=== PATIENT | female | born 1995 | race Caucasian/White ===

== ENCOUNTER → 2019-02-16 17:38 | Outpatient (CLI) | payer BC, MEDICAID, SELFPAY ==
[2019-02-16 13:15] VITALS: BMI 24.5
[2019-02-16 20:09] LABS: Chlamydia Trachomatis by PCR Negative (Negative); Neisserai gonorrhoeae by PCR Negative (Negative)
[2019-02-16 20:10] LABS: Probe Check PASS; Sample Adequacy Control PASS; Specimen Processing Control PASS
[2019-02-19 18:14] LABS: HPV Reflexed? NOT INDICATED
== END ==
PROVIDERS: Visit Provider Obstetrics & Gynecology
DX: Z34.80 Encounter for supervision of other normal pregnancy, unspecified trimester (principal); Z12.4 Encounter for screening for malignant neoplasm of cervix
CPT/HCPCS: 87086; 87491; 87591; 88175; G0145

== ENCOUNTER → 2019-03-16 11:33 | Outpatient (CLI) | payer BC, MEDICAID, SELFPAY ==
[2019-03-16 11:18] VITALS: BMI 24.8
[2019-03-16 12:24] LABS: Absolute Lymphocyte Count 1.56 X10^3/uL (0.83-4.51); Absolute Neutrophil Count 5.1 X10^3/uL (2.0-7.7); Basophil# 0.02 X10^3/uL; Basophil% 0.3 % (0-1); Eosinophil# 0.07 X10^3/uL; Hematocrit 40.6 % (37-47); Hemoglobin 13.4 g/dL (12.0-15.0); Lymphocyte # 1.56 X10^3/ul (4.0); Monocyte# 0.35 X10^3/uL; Monocyte% 4.9 % (0-10); NRBC Flagged by Analyzer 0 % (0-5); Neutrophil # 5.05 X10^3/uL (2.7-7.7); Neutrophil % 71.2 % (47-70); Platelet Count 204 K/mm3 (150-450); RBC Distribution Width CV 12.9 % (11.6-14.6); RBC Distribution Width SD 42.5 fl (35.1-43.9); Red Blood Count 4.46 M/mm3 (4.2-5.4); White Blood Count 7.1 K/mm3 (4.4-11.0)
[2019-03-16 12:42] LABS: AST(SGOT) 20 U/L (15-37); Alanine Aminotransfer ALT/SGPT 26 U/L (13-56); Albumin, Serum 3.5 g/dL (3.2-5.0); Alkaline Phosphatase 58 U/L (45-117); Anion Gap 6 (5-15); BUN 6 mg/dL (7-18); BUN/Creat Ratio 8.9 RATIO (10-20); Calcium,Total 9.1 mg/dL (8.5-10.1); Chloride 108 mmol/L (98-107); Creatinine, Serum 0.67 mg/dL (0.55-1.02); EST Glomerular Filtration Rate 114 mL/min (>60); Est Glom Filt Rate - Afr Amer 138 mL/min (>60); Globulin 3.6 g/dL (2.2-4.2); Glucose 93 mg/dL (74-106); Potassium 3.7 mmol/L (3.5-5.1); Protein, Total 7.1 g/dL (6.4-8.2); Sodium Level 138 mmol/L (136-145)
[2019-03-16 14:55] LABS: HIV - WCH Preliminary Reactive (Nonreactive); Hepatitis B Surface Antigen Non-Reactive (Nonreactive); Rubella IgG 163.8 IU/mL
[2019-03-19 03:50] LABS: Rapid Plasmin Reagin (RPR) NONREACTIVE (NONREACTIVE)
== END ==
PROVIDERS: Referring Provider Obstetrics & Gynecology; Visit Provider Obstetrics & Gynecology
DX: Z34.80 Encounter for supervision of other normal pregnancy, unspecified trimester (principal); Z87.59 Personal history of other complications of pregnancy, childbirth and the puerperium; Z87.19 Personal history of other diseases of the digestive system
CPT/HCPCS: 80053; 85025; 86592; 86703; 86762; 86850; 86900; 86901; 87340

== ENCOUNTER → 2019-03-23 11:21 | Outpatient (CLI) | payer BC, MEDICAID, SELFPAY ==
[2019-03-16 11:43] VITALS: BMI 24.5
== END ==
PROVIDERS: Referring Provider Obstetrics & Gynecology; Visit Provider Obstetrics & Gynecology
DX: Z78.9 Other specified health status (principal)
CPT/HCPCS: 36415

== ENCOUNTER → 2019-08-31 08:02 | Outpatient (CLI) | payer BC, MEDICAID, SELFPAY ==
[2019-08-25 16:15] VITALS: BMI 24.5
[2019-08-31 09:06] LABS: ALB/GLOB Ratio 0.8 RATIO (0.9-2.4); AST(SGOT) 31 U/L (15-37); Alanine Aminotransfer ALT/SGPT 34 U/L (13-56); Albumin, Serum 2.8 g/dL (3.2-5.0); Alkaline Phosphatase 139 U/L (45-117); Anion Gap 7 (5-15); BUN 5 mg/dL (7-18); Calcium,Total 8.5 mg/dL (8.5-10.1); Chloride 108 mmol/L (98-107); EST Glomerular Filtration Rate 160 mL/min (>60); Est Glom Filt Rate - Afr Amer 193 mL/min (>60); Globulin 3.7 g/dL (2.2-4.2); Glucose 85 mg/dL (74-106); Potassium 3.7 mmol/L (3.5-5.1); Protein, Total 6.5 g/dL (6.4-8.2); Sodium Level 137 mmol/L (136-145)
[2019-08-31 10:35] LABS: HIV - WCH Preliminary Reactive (Nonreactive)
== END ==
PROVIDERS: Referring Provider Obstetrics & Gynecology; Visit Provider Obstetrics & Gynecology
DX: L50.9 Urticaria, unspecified (principal); Z78.9 Other specified health status
CPT/HCPCS: 36415; 80053; 86703

== ENCOUNTER → 2019-09-08 17:15 | Outpatient (CLI) | payer BC, MEDICAID, SELFPAY ==
[2019-09-08 14:14] VITALS: BMI 24.5
== END ==
PROVIDERS: Referring Provider Obstetrics & Gynecology; Visit Provider Obstetrics & Gynecology
DX: Z34.90 Encounter for supervision of normal pregnancy, unspecified, unspecified trimester (principal)
CPT/HCPCS: 87081

== ENCOUNTER → 2019-09-14 18:53 | Outpatient (CLI) | payer BC, MEDICAID, SELFPAY ==
[2019-09-14 13:14] VITALS: BMI 24.5
--- NOTE | 2019-09-14 18:56 | US_ITS ---
STUDY: SECOND AND THIRD TRIMESTER OBSTETRICAL ULTRASOUND REASON FOR EXAM: Female, 24 years old. Growth. Small for gestational age. LMP: 12/25/2018. TECHNIQUE: Transabdominal TECHNICAL QUALITY: Adequate. PRIOR ULTRASOUND: None. FINDINGS: There is a single intrauterine fetus. The fetus is in a cephalic presentation. There is demonstrated cardiac activity with a heart rate ranging between 128 and 149 bpm. There is a normal amniotic fluid volume. The largest amniotic fluid pocket measures 4.41 cm. The amniotic fluid index (INDIRA) is 13.42 cm. The placenta is posterior in location and is not low lying. There are Grade 2 placental changes. The cervix is not visualized. BIOMETRY: BPD: 8.87 cm: 36 weeks, 0 days HC: 33.19 cm: 37 weeks, 6 days AC: 33.94 cm: 37 weeks, 6 days FL: 7.09 cm: 36 weeks, 3 days CI: 83 FL/BPD: 80 FL/HC: FL/AC: 21 HC/AC: 0.98 age by current US: 37 weeks, 1 days. SABRINA by current US: 10/04/2019. Estimated weight: 3159 grams, +/- 461 grams, 51 %. Age by LMP: 37 weeks, 4 days. SABRINA by LMP: 10/01/2019. US/OB Limited With Biometrics IMPRESSION: 1. Live single intrauterine at 37 weeks, 1 day. SABRINA is 10/04/2019. This correlates well with expected gestational age by last menstrual period. 2. EFW 3159 g. 3. INDIRA of 13.42 cm. 4. Posterior grade 2 placenta. 5. Vertex presentation. Electronically Signed: Naren Smith DO at 21:56 EDT Tel [phone], Service support ,
== END ==
PROVIDERS: Visit Provider Obstetrics & Gynecology
DX: Z34.93 Encounter for supervision of normal pregnancy, unspecified, third trimester (principal)
CPT/HCPCS: 76816

== ENCOUNTER → 2019-09-25 18:04 | Outpatient (CLI) | payer BC, MEDICAID, SELFPAY ==
[2019-09-23 14:54] VITALS: BMI 24.5
== END ==
PROVIDERS: Referring Provider Obstetrics & Gynecology; Visit Provider Obstetrics & Gynecology
DX: Z11.59 Encounter for screening for other viral diseases (principal)
CPT/HCPCS: 87635; 94799; U0003

== ENCOUNTER 2019-09-30 10:49 | Inpatient (IN) | payer BC, MEDICAID, SELFPAY ==
[2019-09-14 13:14] VITALS: BMI 24.5
[2019-09-23 14:54] VITALS: BMI 24.5
[2019-09-30] VITALS (38 sets, daily range): BP systolic 84–125; BP diastolic 46–86; PULSE 85–131; RESP 16; TEMP 36.7–37.2; O2SAT 89–100; BMI 27.4
[2019-09-30] MEDS: Lactated Ringers 500 ML 999 ML IV (10:55)
[2019-09-30 11:25] LABS: Absolute Lymphocyte Count 2.59 X10^3/uL (0.83-4.51); Absolute Neutrophil Count 6.6 X10^3/uL (2.0-7.7); Basophil# 0.04 X10^3/uL; Basophil% 0.4 % (0-1); Eosinophil# 0.06 X10^3/uL; Eosinophils% 0.6 % (0-5); Hematocrit 40.4 % (37-47); Hemoglobin 13.6 g/dL (12.0-15.0); Lymphocyte # 2.59 X10^3/ul (4.0); Lymphocyte % 26.1 % (19-41); Mean Corp Hgb Conc 33.7 g/dL (32-36); Mean Corpuscular Hgb 31.3 pg (27.0-32.0); Mean Corpuscular Volume 93.1 fL (81-99); Monocyte# 0.52 X10^3/uL; Monocyte% 5.2 % (0-10); NRBC Flagged by Analyzer 0 % (0-5); Neutrophil # 6.64 X10^3/uL (2.7-7.7); Neutrophil % 67.1 % (47-70); Platelet Count 177 K/mm3 (150-450); RBC Distribution Width CV 13.2 % (11.6-14.6); RBC Distribution Width SD 45.1 fl (35.1-43.9); Red Blood Count 4.34 M/mm3 (4.2-5.4); White Blood Count 9.9 K/mm3 (4.4-11.0)
[2019-09-30] MEDS: Lactated Ringers 1,000 ML 200 ML IV (11:25)
[2019-09-30] MEDS: fentaNYL-bupivacaine (epidural) 100 ML BAG EPIDURAL (11:54)
[2019-09-30] MEDS: Oxytocin 30 units/NS 500 ml 30 UNITS/500 ML IV.SOLN 334 UNITS IV (13:41)
[2019-09-30] MEDS: Senna/Docusate Sodium 1 Tablet PO (16:09)
--- NOTE | 2019-09-30 21:22 | HP.PCM_ITS ---
- Problem List (1) Active labor at term Status: Acute (2) False positive HIV serology Status: Acute Comment: HIV RNA 1/2- negative. APL testing negative. repeat testing third TM confirmation neg. (3) Rh negative status during Status: Acute Comment: rhogam 03/16/19, 07/09/19 and 28 weeks (4) History of cholestasis during Status: Acute Comment: early onset first , no liver disease (5) Supervision of other normal Status: Acute Comment: PRR SABRINA 09/24/19 boy lance JOANN Melendez Jennifer - Len (6) Status: Acute Qualifiers: Comment: NIPT, carrier, and ntd screening declined. APL negative, anatomy normal. no GCT, Checked BS x1 week normal TDAP given 07/09/19 History Date of Admission: 09/30/19 Final SABRINA: 10/01/19 Gestational age: 39 Weeks and 6 Days History of this : This is a 24 year-old, at 39 weeks gestational age presents in active labor 5 cm with spontaneous rupture membranes at 1 AM today for clear fluid. She has had an uncomplicated but had a false positive HIV test that c onfirmation test was negative and APL testing was negative.. Medical History: Medical History (Last Reviewed 09/23/19 @ 14:54 by Almaz Salomon) Anxiety F41.9 Surgical History: Surgical History (Last Reviewed 09/23/19 @ 14:54 by Almaz Salomon) No significant past surgical history Allergies No Known Allergies Allergy (Verified 09/23/19 14:54) Home Medications: Home Medications vitamin#30 30 mg iron-10 mg iron-folic acid 1 mg-omg3 capsule cap PO 03/16/19 blood-glucose meter See Rx Instructions .ROUTE .MEDSUPPLY #1 ea 05/18/19 lancets-blood glucose strips 30 gauge and blood glucose strips combo pack See Rx Instructions .ROUTE .MEDSUPPLY #200 ea 05/18/19 Smoking Status: Never smoker Alcohol: None Number of Fetus(es): 1 NST - FHR Rate Baby A Baseline: 130 Variability:: Moderate Accelerations:: 15 x 15 Decelerations:: None NST Reactive:: Appropriate for gestational age FHR Category:: Category I History Past Pregnancies: Past Pregnancies 2 previous term vaginal deliveries. Cholestasis with first . Precipitous delivery with second. Labs: Mom's Labs & Results 09/30/19 09/30/19 10:55 10:55 WBC 9.9 RBC 4.34 Hgb 13.6 Hct 40.4 MCV 93.1 MCH 31.3 MCHC 33.7 RDW Std Deviation 45.1 H RDW Coeff of Yunior 13.2 Plt Count 177 MPV 12.0 Immature Gran % (Auto) 0.600 Neut % (Auto) 67.1 Lymph % (Auto) 26.1 [place] % (Auto) 5.2 Eos % (Auto) 0.6 Baso % (Auto) 0.4 Absolute Neuts (auto) 6.6 Absolute Lymphs (auto) 2.59 Nucleated RBC % 0 Blood Type O NEGATIVE Antibody Screen NEGATIVE Course Did the patient receive Yes care? Labs Blood Type: O RH: NEGATIVE RPR/VDRL/Syphilis Nonreactive Rubella status Immune HbSAg Negative Date Done: 03/16/19 Chlamydia Negative Gonorrhea Negative HIV/AIDS Non-Reactive Group B Strep: Negative Other Lab Procedures/Results/ HIV was a false positive per pt, was orginially Comments: positive, pt states they did a further test and it was negative Current Obstetrical History Gestational Diabetes No Incompetent Cervix No Infertility No IUGR No Macrosomia No Hypertension/Pre-eclampsia No Placenta Previa/Abruption No PTL/PROM No Uterine anomaly No Oligohydramnios No Polyhydramnios No Multiple gestation No Past Medical History Asthma No Diabetes No Hypertension No Heart disease No Mitral valve prolapse No Neurologic/Seizure disorder/ No Migraines Kidney disease No Liver disease No Varicosities No Clotting disorders/Hx of DVT No Thyroid Dysfunction No Other medical diseases No Psychiatric disorders No Major trauma No Abnormal PAP smear No Sleep apnea No Mammogram in the last 2 years No Social History Marital Status: Alleged father Len Hx Smoking No Smoking Status Never smoker Expected Delivery Method: Spontaneous Vaginal Review of Systems Constitutional: Denies: Fever, Malaise Eyes: Denies: Blurred vision, Vision Change HEENT: Denies: Head Aches, Visual Changes Cardiovascular: Denies: Chest Pain, Palpitations Respiratory: Denies: Cough, Shortness of Breath, Wheezing Gastrointestinal: Denies: Abdominal Pain, Diarrhea, Nausea, Vomiting Genitourinary: Denies: Dysuria, Hematuria Gynecological: Reports: Vaginal discharge Musculoskeletal: Denies: Joint Pain, Muscle pain Skin: Denies: Lesions, Rash Neurological: Denies: Blurred vision, Focal weakness, Headaches Psychiatric: Denies: Anxiety, Depression Endocrine: Denies: Heat/ Cold Intolerance Hematologic/ Lymphatic: Denies: Easy Bruising, Easy Bleeding Physical Exam Vitals: Vital Signs Temp Pulse Resp BP Pulse Ox 98.7 F 107 H 16 110/74 97 09/30/19 20:01 09/30/19 20:01 09/30/19 20:01 09/30/19 20:01 09/30/19 17:25 General: Alert, Cooperative, No apparent distress HEENT: Atraumatic, Normocephalic. Negative for: Thyromegaly, Lymphadenopathy Cardiovascular: Regular rate Lungs: Normal air movement Abdomen: Soft, Non Tender, Gravid Neurological: Deep Tendon Reflexes 2+/4 and Symmetrical, Neuro grossly intact. Negative for: Clonus LENS GRINDER AND POLISHER: Normal external genitalia. Negative for: Vulvar lesions Estimated gestational size: Appropriate for gestational size Presentation: Cephalic Cervix Dilation (cm): 5 Assessment/Plan All Active Problems (Last Reviewed 09/23/19 @ 14:54 by Almaz Salomon) Active labor at term (Acute) False positive HIV serology (Acute) Rh negative status during (Acute) History of cholestasis during (Acute) Supervision of other normal (Acute) (Acute) Uterine size-date discrepancy, third trimester (Resolved) This is a 24 year-old, , at 39 weeks gestational age. Patient presents IAL, plan expectant management for , pitocin/AROM PRN if needed. Pain management: Prefers minimal intervention. GBS negative. Management of any complications: None [facility] the [facility] and made any clinically relevant updates.
--- NOTE | 2019-09-30 21:24 | PCM.OPRPT ---
Problem List (1) Active labor at term Status: Acute (2) False positive HIV serology Status: Acute Comment: HIV RNA 1/2- negative. APL testing negative. repeat testing third TM confirmation neg. (3) Rh negative status during Status: Acute Comment: rhogam 03/16/19, 07/09/19 and 28 weeks (4) History of cholestasis during Status: Acute Comment: early onset first , no liver disease (5) Supervision of other normal Status: Acute Comment: PRR SABRINA 09/24/19 boy lance JOANN Chenon Jennifermatthew Harrington (6) Status: Acute Qualifiers: Comment: NIPT, carrier, and ntd screening declined. APL negative, anatomy normal. no GCT, Checked BS x1 week normal TDAP given 07/09/19 Vaginal Delivery Maternal Presentation: Active Labor 4-year-old G3, P2 at 39 weeks 6 days presents in active labor Amniotic Membrane Rupture Type: Spontaneous at home Amniotic Fluid Description: Clear Final SABRINA: 10/01/19 Gestational age: 39 Weeks and 6 Days Date of Procedure: 09/30/19 Pre-Operative Diagnosis: ial Post-Operative Diagnosis: same Surgery/ Procedure Performed: Spontaneous Vaginal Delivery Type of Anesthesia: Local with 1% lidocaine Description of Procedure: Patient began pushing and delivered the head in the TATYANA presentation. The head was delivered atraumatically and a loose nuchal cord ?1 was identified and easily reduced over the 's head. The anterior and posterior shoulders delivered without complication followed by the rest of the and the infant was placed on the maternal abdomen. Delayed cord clamping was employed for approximately 60 seconds. Cord was clamped and cut and gentle traction was applied to the cord and the placenta delivered spontaneously immediately following it was noted to be intact with three-vessel cord. The perineum and vagina were inspected and noted to have a second-degree perineal laceration which was injected with 1% lidocaine and repaired in the usual fashion with 3-0 Vicryl Rapide. EBL was 200 cc. Patient and infant tolerated delivery well. Presentation: TATYANA Placental Delivery Description: Spontaneous Placenta Disposition: [facility] Cord Vessel Description: 3 Vessels Cord Entanglement: Around neck x 1, loose Estimated Blood Loss: 200 Infant A gender: Male Episiotomy Description: None Laceration: Midline, Perineal Extension/lac, 2nd degree Medications given after delivery: IV Pitocin Complications: None Multi Select Codes - Urinary/Genital Urinary/Genital CPT Codes: 38336 Vaginal Delivery [facility]
--- NOTE | 2019-09-30 21:26 | DCINST_ITS ---
Discharge Diet: No Restrictions Discharge Activity: Return to Normal Activity, May not drive while taking narcotic pain medications., May Shower May resume sexual activity in: 4-6 weeks Call your doctor if your incision/area has: Continuous Slow Oozing, Sudden Increased Bleeding, Increased Pain/ Swelling, Increased Redness, Foul Smelling Discharge Additional Instructions: If you experience any of the following, contact your healthcare provider. * Bleeding that soaks a pad every hour for 2 hours * Fever 100.4 or higher * Unrelieved incision or abdominal pain * Swelling, redness, discharge or bleeding from your incision or episiotomy site * Your incision begins to separate * Problems urinating (including inability to urinate or burning while urinating). * Visual changes * Severe headache * Flu-like symptoms * Pain or redness in one of both of your breasts * Pain, warmth, tenderness or swelling in your legs, especially the calf area * Frequent nausea and vomiting * Symptoms of depression or anxiety If you experience any of the following, call 911 or go to the nearest Emergency Room. * Chest pain * Problems breathing * Seizure activity * Partial or complete paralysis of a body part, slurred speech, weakness or drooping of the face, or a sudden inability to walk or hold your balance Allergies/Adverse Reactions: Allergies No Known Allergies Allergy (Verified 09/23/19 14:54) Medications to take at Discharge vitamin#30 30 mg iron-10 mg iron-folic acid 1 mg-omg3 capsule cap PO 03/16/19 blood-glucose meter See Rx Instructions .ROUTE .MEDSUPPLY #1 ea 05/18/19 lancets-blood glucose strips 30 gauge and blood glucose strips combo pack See Rx Instructions .ROUTE .MEDSUPPLY #200 ea 05/18/19 Please Follow Up With: Cuca Dela Cruz MD - [phone] When: Call to make an appointment with your doctor in 6 weeks. If you had elevated Blood pressure or 4th degree laceration you will need to be seen in 2 weeks. Primary Care Physician: Care Physician,No Primary [Primary Care Provider] - Test Results: Test results from this visit will be discussed in further detail at your follow- up appointment, if applicable.
[2019-10-01 00:20] VITALS: BP 96/49; PULSE 102; RESP 16; TEMP 36.6
[2019-10-01 03:22] VITALS: BP 91/53; PULSE 87; RESP 14; TEMP 36.6
[2019-10-01] MEDS: Naproxen 250 MG Tablet 500 MG PO (06:21)
[2019-10-01 08:45] VITALS: BP 93/53; PULSE 91; RESP 16; TEMP 36.7
[2019-10-01] MEDS: Senna/Docusate Sodium 1 Tablet PO (09:27)
--- NOTE | 2019-10-01 09:57 | PN.OBGYN_ITS ---
Patient Problems: Active and Suspected Problems (Last Reviewed 09/23/19 @ 14:54 by Almaz Salomon) Active labor at term (Acute) Subjective: Patient doing well without complaints. Tolerating PO. Ambulating and voiding without difficulty. [ ] passing gas. [ ] feeding without difficulty. Denies chest pain, shortness of breath, calf pain/swelling, fevers, chills, lightheadedness. - Physical Exam Vitals/I&O's: Vital Signs Temp Pulse Resp BP Pulse Ox 97.8 F 87 14 91/53 L 97 10/01/19 03:22 10/01/19 03:22 10/01/19 03:22 10/01/19 03:22 09/30/19 17:25 Oxygen Delivery Method Room Air Weight: 170 lb Body Mass Index (BMI) 27.4 Intake and Output for Last 24 Hours 09/29/19 09/30/19 10/01/19 23:59 23:59 23:59 Intake Total 1453.33 / 1453.33 Balance 1453.33 / 1453.33 General: Alert, Oriented x3 Laboratory Results 09/30/19 10:55: WBC 9.9, RBC 4.34, Hgb 13.6, Hct 40.4, MCV 93.1, MCH 31.3, MCHC 33.7, RDW Std Deviation 45.1 H, RDW Coeff of Yunior 13.2, Plt Count 177, MPV 12.0, Immature Gran % (Auto) 0.600, Neut % (Auto) 67.1, Lymph % (Auto) 26.1, [place] % (Auto) 5.2, Eos % (Auto) 0.6, Baso % (Auto) 0.4, Absolute Neuts (auto) 6.6, Absolute Lymphs (auto) 2.59, Nucleated RBC % 0 09/30/19 10:55: Blood Type O NEGATIVE, Antibody Screen NEGATIVE Current Medications Acetaminophen (Tylenol) 1,000 mg PO Q8H PRN PRN PRN Reason: Pain Score 1-3/10 Bisacodyl (Dulcolax) 10 mg RECTAL UD PRN PRN Reason: If no BM Dibucaine (Dibucaine) 1 applic TOPICAL TID PRN PRN; Protocol PRN Reason: Discomfort Hydrocortisone (Hytone) 1 applic TOPICAL TID PRN PRN; Protocol PRN Reason: Discomfort Methylergonovine Maleate (Methergine) 0.2 mg IM X1 PRN PRN Reason: Excess bleeding/uterine atony Naproxen (Naprosyn) 500 mg PO Q8H PRN PRN PRN Reason: Pain Score 1-3/10 Last Admin: 10/01/19 06:21 Dose: 500 mg Documented by: Ondansetron HCl (Zofran) 4 mg IV Q4H PRN PRN PRN Reason: Nausea Oxycodone HCl (Oxyir) 5 - 10 mg PO Q4H PRN PRN PRN Reason: Pain Score 4-10/10 Senna/Docusate Sodium (Senokot-S, Kell-Colace) 1 - 2 tablet PO DAILY PRN PRN PRN Reason: Constipation Last Admin: 10/01/19 09:27 Dose: 2 tablet Documented by: Simethicone (Mylicon) 80 mg PO PCHS PRN PRN Reason: Indigestion/Stomach pain Sodium Chloride () 5 - 15 ml IV UD PRN PRN Reason: SALINE FLUSH Medical Necessity - Tobacco Use Smoking Status: Never smoker Assessment/Plan All Active Problems (Last Reviewed 09/23/19 @ 14:54 by Almaz Salomon) Active labor at term (Acute) False positive HIV serology (Acute) Rh negative status during (Acute) History of cholestasis during (Acute) Supervision of other normal (Acute) (Acute) Uterine size-date discrepancy, third trimester (Resolved) s/p PPD # 1 1. routine post delivery care 2. breast feeding- support given 3. rh positive 4. rubella immune
[2019-10-01 12:00] VITALS: BP 111/73; PULSE 93; RESP 16; TEMP 36.2
--- NOTE | 2019-10-05 11:39 | NURSING ---
follow up call complete, patient denies questions or concerns , states things are going well and was atisfied with her care
== END 2019-10-01 15:20 | disposition home or self-care (01) | DRG 807 ==
LOC: WPOUT 10:54 → WP 10:55 → WPOUT 10:57 → WP 10:57
PROVIDERS: Admitting Provider Obstetrics & Gynecology; Visit Provider Obstetrics & Gynecology
DX: O69.81X0 Labor and delivery complicated by cord around neck, without compression, not applicable or unspecified (principal); Z37.0 Single live birth; Z3A.39 39 weeks gestation of pregnancy; O26.893 Other specified pregnancy related conditions, third trimester; Z67.91 Unspecified blood type, Rh negative; O70.1 Second degree perineal laceration during delivery
CPT/HCPCS: 59025; 59050; 85025; 86850; 86900; 86901; 99218; J7120; G0378